=== PATIENT | female | born 1985 | race Caucasian/White ===

== ENCOUNTER 2023-07-06 10:18 | Outpatient (CLI) | payer OTHER, SELFPAY ==
--- NOTE | ~2023-07-06 | MR_ITS ---
MR breast BI wo/w con 07/06/2023 14:14 FIRST ASSISTANT MANAGER INDICATION: Nipple discharge. TECHNIQUE: MRI of the breasts perform using standard protocol pre-and post IV contrast with the follo wing sequences: Axial T2 STIR, axial T1, axial vibrant T1 with fat suppression precontrast and multip hasic postcontrast. 20 cc MultiHance administered intravenously. COMPARISON: No prior studies for comparison. FINDINGS: There are bilateral renal cysts. There is marked background parenchymal enhancement. No en hancing lesions following contrast administration. No areas of enhancement meeting threshold criteri a on CAD analysis. No evidence of signal abnormalities in the axillary or internal mammary node dist ributions. LEFT BREAST: Bilateral renal cysts. There is marked background parenchymal enhancement. No enhancin g lesions following contrast administration. No areas of enhancement meeting threshold criteria on C AD analysis. No evidence of signal abnormalities in the axillary or internal mammary node distribut ions.] IMPRESSION: 1: Right breast: Examination limited by marked background enhancement. No enhancing mass is identifi ed. 2: Left breast: Examination limited by marked background enhancement. No enhancing mass is identifi ed. Correlation with diagnostic bilateral mammogram and complete bilateral breast ultrasound recommended for complete evaluation of nipple discharge. BI-RADS CATEGORY 0 - INCOMPLETE STUDY, NEED ADDITIONAL IMAGING EVALUATION. Reviewed, dictated and finalized at location A. T ASSISTANT MANAGER IMPRESSION: 1: Right breast: Examination limited by marked background enhancement. No enha ncing mass is identified. 2: Left breast: Examination limited by marked background enhancement. No enha ncing mass is identified. Correlation with diagnostic bilateral mammogram and complete bilateral breast u ltrasound recommended for complete evaluation of nipple discharge. BI-RADS CATEGORY 0 - INCOMPLETE STUDY, NEED ADDITIONAL IMAGING EVALUATION.
== END 2023-07-06 10:19 | disposition home or self-care (01) ==
PROVIDERS: Visit Provider Surgery
DX: N64.52 Nipple discharge (principal); R92.8 Other abnormal and inconclusive findings on diagnostic imaging of breast
CPT/HCPCS: 77049; A9577; C8908

== ENCOUNTER 2023-08-17 00:50 | Day surgery (SDC) | payer OTHER, SELFPAY ==
[2023-08-09 14:23] VITALS: BMI 39.4
--- NOTE | 2023-08-09 14:31 | PC.NURSE ---
Report to the Outpatient Waiting Room, entrance under the green pavilion located off [facility], at time 0600 on date 08/17/23. Planned Procedure Time: 0730. Time changes happen often and if your time is changed the preop area will call you the afternoon before. - You and your visitor will be asked to self-screen and do not enter if you have any COVID symptoms. - A mask is optional within the hospital at this time. Patients may have clear liquids (water, carbonated beverages, clear teas, apple juice) until 3 hours prior to surgery with a maximum of 20 ounces. - No food from midnight until time of surgery Take the following medications with a SIP of water the morning of surgery: INHALER DO NOT STOP ANY OF YOUR OTHER PRESCRIPTION MEDICATIONS PRIOR TO SURGERY ?EXCEPT THE FOLLOWING Medications to discontinue per physician: IBUPROFEN Date to take last dose: PER DR. AGOSTO Please no make-up, nail lithuanian, hairspray, perfume, deodorant, or body powder the day of surgery. No jewelry (including any body piercings) or valuables the day of surgery, leave them at home. Please take a shower or bath the night before, or the morning of, surgery with an antibacterial soap. Wear comfortable, loose fitting clothing. - Jewelry must be removed prior to entering the operating room. Rings and piercings that are not removed may be cut off. - The hospital will not accept responsibility for valuables. - Please leave all valuables, including medications, at home the day of surgery. If you are going home after surgery, a licensed lumber driver must drive you home. - NO public transportation without another adult if you receive anesthesia. - We recommend that an adult stay with you for 24 hours following discharge. - We also recommend that you do not drive, make important decision, drink alcoholic beverages, or take any drugs that were not prescribed by your health care provider for at least 24 hours after your discharge time. Follow any additional instructions given to you from your surgeon. If you or anyone in your household have experienced Covid symptoms in the past week, please notify your surgeon or the nurse liaison at the phone number below for possible testing. Telephone instructions given to PT - AL[place] VOSS and asked if any additional questions and then verbalized understanding. Patient advised to call surgeon office or pre surgery nurse liaison [phone] if any additional questions.
[2023-08-17] VITALS (9 sets, daily range): BP systolic 110–123; BP diastolic 54–78; PULSE 62–80; RESP 16–18; TEMP 36.4; O2SAT 99–100
--- NOTE | 2023-08-17 07:09 | WPDHPUPDATE1 ---
History and Physical Update Update Date/Time: 08/17/23 07:09 Right nipple discharge unchanged, plan to proceed with right nipple exploration, excisional biopsy of mammary duct possible duct excision under local anesthetic only, since patient had a latte this morning. Patient voiced understanding and agreement. History and Physical has been reviewed, including an updated exam of the patient. There are NO changes in the patient's condition. Risks, benefits, and alternatives have been discussed and questions answered. Patient agrees to proceed with procedure.
[2023-08-17] MEDS: LACTATED RINGERS 1,000 ML 30 ML IV CONT (07:15)
[2023-08-17] MEDS: ceFAZolin 2 GM/D5W 50 ML 2 GM/50 ML BAG IVPB (07:28)
--- NOTE | 2023-08-17 07:47 | SUR.PREOP ---
[id number] DR [address]A SPOKE WITH DR. AGOSTO ABOUT PTS INTAKE
--- NOTE | 2023-08-17 07:49 | SUR.PREOP ---
0705 DR AGOSTO HERE TO SEE PT
[2023-08-17] MEDS: LIDOCAINE HCL 1% LOCAL INJ 20 ML VIAL INFILTRATE (07:55)
--- NOTE | 2023-08-17 08:31 | SUR.OPER ---
Central Ducts Right Breast tissue excised at 08:27 and sent to pathology fresh for permanent. Delivered to pathology by MELITON Butler.
--- NOTE | 2023-08-17 08:40 | P.OP_ITS ---
Procedure Note - Detailed Date of Procedure 08/17/23 Pre-op Diagnosis Right nipple discharge Post-op Diagnosis Same Procedure Performed Right nipple exploration, excisional biopsy of right central mammary duct Surgeon Danita Rasmussen MD [employer] Sales Assistant Lucinda Prakash PA-C Anesthesia Local Indications 37 year old female who was evaluated for right nipple discharge. She was noted to have clear discharge arising from the central duct on exam twice in clinic, while white/green discharge arising from the peripheral ducts as well as left side. She underwent a MRI for further evaluation, which was unremarkable. She was recommended to undergo an excisional biopsy of right central mammary duct. Risks of surgery were discussed with patient, which included but not limited to risk of bleeding, infection, wound healing problems, scar, pain, recurrence, possible need for additional procedures in the future. All questions were answered patient agreed to proceed. Description of Procedure Patient was identified in the preoperative holding area brought to the operating room suite. She was placed on the operating table in the right chest area was prepped and draped in a sterile fashion. The periareolar and subareolar area of the right breast was infiltrated with 0.25% Marcaine and 0.5% lidocaine with epinephrine 50 50 mixture. A small superior curvilinear incision was made in the periareolar area and dissection was carried down through the subcutaneous tissue. I was able to introduce a small lacrimal probe through the central ducts and identify through the underside of the incision. A completely dissect around the central duct, and this was excised just underneath the nipple skin and down to approximately 1.5-2 cm below. The specimen was sent to pathology as a fresh specimen. The cavity was irrigated with saline hemostasis was assured. The central area where the central duct previously was located was approximated with interrupted 3-0 Vicryl to prevent nipple retraction. The deep dermal layer was then closed with interrupted 3-0 Vicryl followed by 4-0 Monocryl in a subcuticular fashion. Dermabond was applied followed by a sterile dressing and a surgical bra. Patient was taken to the recovery area in stable condition. All needles, instruments, and sponge counts were correct as reported by the operating room staff. Patient tolerated the procedure well with no immediate complications. Drains No Packing No Pathology Yes Complications No immediate complications Condition Stable Disposition PACU [facility] Billing Surgery - Charge Forward: Surgery Billing (CPT 11283)
== END 2023-08-17 08:59 | disposition home or self-care (01) ==
PROVIDERS: Visit Provider Surgery
PROC: (CPT 19120; principal; 2023-08-17 07:30)
DX: N64.52 Nipple discharge (principal); F17.210 Nicotine dependence, cigarettes, uncomplicated
CPT/HCPCS: 19120; 88305; J0690; J7120; Q9968